=== PATIENT | male | born 1970 | race Caucasian/White ===

== ENCOUNTER 2016-10-26 12:04 | Emergency (ER) | payer OTHER ==
[~2016-10-26] VITALS: Ht 185.4 cm; Wt 131.5 kg
[~2016-10-26 12:04] MED LIST: CIALIS5 M1 PO; FLEXERIL10 MG PO; LISINOPRIL-HCT1 EAC1 PO; MOTRIN 600 MG600 MG PO; NEXIUM 40MG40 MG PO; PERCOCET 325 MG1 TA2 PO; TESTOSTERO TOP; VALIUM5 M1 PO
[2016-10-26 12:23] VITALS: BP 111/75
--- NOTE | 2016-10-26 12:46 | ED INFLUENZA/URI COMPLAINT ---
History of Present Illness General Chief Complaint: Upper Respiratory Sx/Fever Stated Complaint: URI Source: patient, old records Exam Limitations: no limitations Vital Signs & Intake/Output Vital Signs & Intake/Output Vital Signs Date Time Temp Pulse Resp B/P Pulse O2 O2 Flow FiO2 Ox Delivery Rate 10/26 1223 98.1 105 16 111/75 96 Room Air Allergies Coded Allergies: adhesive (RED AND IRRITATED - STERI STRIPS 10/26/16) Reconcile Medications Clindamycin HCl 300 MG CAPSULE 1 CAP PO TID bronchitiis Esomeprazole (Nexium) 40 MG CAPSULE.DR 1 TAB PO DAILY GI (Reported) Fluticasone Propionate 50 MCG/ACTUATION SPRAY.SUSP 1 SPRAY NASB PRN CONGESTION (Reported) Lisinopril/Hydrochlorothiazide (Lisinopril-Hctz 20-25 MG Tab) 20 MG-25 MG TABLET 1 TAB PO DAILY BP (Reported) Methylprednisolone. (Medrol) 4 MG TAB.DS.PK 1 DP PO AD bronchitis 6 on day 1 then reduce by one tablet daily until gone Robitussin AC (Guaifenesin-Codeine Syrup) 200 MG-20 MG/10 ML LIQUID 10 ML PO Q6HR PRN COUGH Tadalafil (Cialis) 5 MG TABLET 1 TAB PO DAILY KIDNEYS/ (Reported) Testosterone Cypionate 200 MG/ML VIAL 1 ML IM QMON HRT (Reported) Triage Note: 46 Y/O MALE C/O URI SYMPTOMS X 1 WEEK; ALSO REQUESTING EVAL OF "CYST" ON LOWER BACK, HAS HAD IT FOR 6-8 WEEKS. WAS ON ANTIBIOTICS FOR SAME 1 MONTH AGO WITH NO CHANGE. AFEBRILE. Triage Nurses Notes Reviewed? yes Onset: Gradual Duration: week(s):, constant Timing: recent history Severity: moderate Severity Numbers: 6 Prior Episodes/Possible Cause: occassional episodes No Modifying Factors: none Associated Symptoms: cough, muscle aches, nasal congestion, nasal drainage HPI: 46 y/o history of herniated disc, htn presents to emergency room complaining of a one-week history of upper respiratory symptoms complaining initially of sinus pressure congestion and rhinorrhea that has progressed to a productive cough yellow sputum sore throat and generalized body aches. He denies fever chills chest pain shortness of breath abdominal pain nausea vomiting or diarrhea. He's been using [id number] medications without improvement. He does not smoke. The patient is also complaining of a questionable cyst or abscess to his lower back that he's had for the past 8 months waxing and waning in intensity aching and throbbing worse with sitting. He was seen by his primary care physician a month ago and was put on Keflex however states the symptoms persisted he denies noting any discharge. He states that he has needed to have incision and drainage performed of previous abscess in the pasT. No black or bloody stools no urinary symptoms (YIMI CAMARA) Past History Travel History Traveled to [place] past 21 day No Medical History Any Pertinent Medical History? 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 No (YIMI CAMARA) Review of Systems Review of Systems Constitutional: Reports: see HPI. All Other Systems: Reviewed and Negative Comments Review of systems: See HPI, All other systems negative. Constitutional, no chills no fever, no malaise HEENT: No visual changes no sore throat no congestion Cardiovascular: No chest pain , no palpitation Skin, no change in skin Respiratory: No dyspnea no cough no sputum GI: No nausea no vomiting, no diarrhea, : No dysuria No hematuria Muscle skeletal: No joint pain, no back pain, no neck pain, Neurologic: No numbness no headache Psych: No stress . Heme/endocrine: No bruising no bleeding Immunology: No lymphadenopathy (YIMI CAMARA) Physical Exam Physical Exam General Appearance: well developed/nourished, no apparent distress, alert, awake , comfortable Ears, Nose, Throat: moist mucous membrane, hearing grossly normal, Tympanic normal, pharynx normal, nasal congestion Comments: Well-developed well-nourished patient in no apparent distress. Head/Face: Atraumatic, no maxillary/frontal sinus tenderness, no facial swelling Eyes: PERRL, EOMI, no conjunctival injection. No nystagmus Ear:External auditory canal and Tympanic membranes clear, no erythema, no FB. Nose: atraumatic.Normal inspection: No bleeding, no septal hematoma Throat: Moist mucous membranes.Pharynx normal. No pharyngeal erythema/exudate seen. No stridor/drooling or assymetry. No swelling or edema. Neck: Supple, no lymphadenopathy, FROM Back: FROM, Nontender Cardiovascular: Regular rate and rhythms no murmurs rubs or gallops, Respiratory: Chest nontender.There were no bony deformities, no asymmetry. No respiratory distress. Patient speaking in full complete sentences. Breath sounds clear to auscultation bilaterally: NO W/R/R Extremities: full range of motion Neuro: Alert and oriented x3 Skin: Warm & dry; there is a 1 cm area of induration noted over the right intergluteal cleft there is no fluctuance no surrounding erythema nontender no discharge elicited Psych: Mood affect normal, normal memory normal judgment. Core Measures Severe Sepsis Present: No Septic Shock Present: No (YIMI CAMARA) Progress Differential Diagnosis: influenza, otitis, pneumonia, pharyngitis, sinusitis, BRONCHITIS ABSCESS CELLULITIS Plan of Care: Discussed with the patient supportive care as needed symptoms most likely viral in etiology lungs were clear he's speaking in full complete sentences discussed with him that I do not believe incision and drainage is warranted at this time nor would it be beneficial which she understands and feels comfortable with this plan. Prescription for clindamycin Robitussin with codeine Medrol Dosepak provided I answered all his questions cleared for discharge Initial ED EKG: none (YIMI CAMARA) Departure Departure Time of Disposition: 3 Disposition: HOME OR SELF CARE Condition: Stable Clinical Impression Primary Impression: URI (upper respiratory infection) Referrals: LUCILA CASTRO MD (PCP/Family) Additional Instructions: Clindamycin as directed. Robitussin with codeine for cough he's caution as this may make you drowsy. Medrol Dosepak as discussed drink plenty fluids use over- the-counter Flonase Mucinex as discussed Departure Forms: Customer Survey General Discharge Information Prescriptions: Current Visit Scripts Clindamycin HCl 1 CAP PO TID #21 CAP Methylprednisolone. (Medrol) 1 DP PO AD #1 DP 6 on day 1 then reduce by one tablet daily until gone Robitussin AC (Guaifenesin-Codeine Syrup) 10 ML PO Q6HR PRN COUGH #200 ML (YIMI CAMARA) PA/ROLL FORM OPERATOR Co-Sign Statement Statement: ED Attending supervision documentation- [] I saw and evaluated the patient. I have also reviewed all the pertinent lab results and diagnostic results. I agree with the findings and the plan of care as documented in the PA's/ROLL FORM OPERATOR's documentation. [X] I have reviewed the ED Record and agree with the PA's/ROLL FORM OPERATOR's documentation. [] Additions or exceptions (if any) to the PAs/ROLL FORM OPERATOR's note and plan are summarized below: [] (ZAHRAA PETERSON DO
[2016-10-26] MEDS ORDERED: TESTOSTERO200 MG/1 M IM (12:51)
[2016-10-26] MEDS ORDERED: FLUTICASONE PRO16 GM NASB (12:53)
[2016-10-26] MEDS ORDERED: MEDROL4 M2 PO (13:18)
[2016-10-26] MEDS ORDERED: CLINDAMYCIN HC300 M1 PO (13:18)
[2016-10-26] MEDS ORDERED: GUAIFENESIN-COD10 ML PO (13:18)
== END 2016-10-26 13:23 ==
LOC: ERH 12:04
DX: J06.9 Acute upper respiratory infection, unspecified (principal); Z87.891 Personal history of nicotine dependence